=== PATIENT | male | born 1955 | race Caucasian/White ===

== ENCOUNTER 2025-08-30 07:14 | Day surgery (SDC) | payer OTHER ==
[~2025-08-30] VITALS: Ht 190.5 cm; Wt 79.4 kg
[~2025-08-30 07:14] MED LIST: ATOR20 PO; Aspir 8181 MG PO; CHLO25B PO; CYCL10 PO; DOCU100 PO; ELIQUIS5 M2 PO; EPIPEN0.3 MG/0.3 IM; FAMO40 PO; FLUT.05NI; MINIPRESS2 M1 PO; PRAZ5 PO; SENN187 PO
[2025-08-30 07:45] VITALS: BP 121/83
[2025-08-30] MEDS ORDERED: NS 500 ML IV ONE (07:59)
[2025-08-30] MEDS ORDERED: Verapamil HCL 2.5 MG/ML 2ML Injection ONE (07:59)
[2025-08-30] MEDS ORDERED: NS 100 ML IV ONE ×2 (07:59→08:15)
[2025-08-30] MEDS ORDERED: NS 250 ML IV ONE (07:59)
[2025-08-30] MEDS ORDERED: Heparin Sodium 1000 Units/ML 10ML MDV ONE ×2 (07:59→08:12)
[2025-08-30] MEDS ORDERED: NS 0 ML IV ONE (07:59)
[2025-08-30] MEDS ORDERED: Nitroglycerin 2 MG/20 ML BTL ONE (08:00)
[2025-08-30] MEDS ORDERED: NS 1,000 ML IV ONE (08:08)
[2025-08-30] MEDS ORDERED: FentaNYL Citrate 50 MCG/ML 2 ML Injection ONE (08:08)
[2025-08-30] MEDS ORDERED: Midazolam HCl 1MG / ML 2ML Vial ONE (08:08)
[2025-08-30 10:01] VITALS: BP 145/93
--- NOTE | 2025-08-30 10:05 | NUR ---
FULL REPORT PROVIDED BRANT Clark RN TO ASSUME CARE OF PT.
[2025-08-30 10:15] VITALS: BP 122/75
--- NOTE | 2025-08-30 10:48 | NUR ---
PT VERBALIZED UNDERSTANDING OF WRITTEN AND VERBAL D/C INST. R PEDAL DRSG CDI. IV REMOVED. PT TAKEN OUT OF THE [facility]RT [facility]ENTER VIA W/C.
== END 2025-08-30 10:45 | disposition home or self-care (01) ==
LOC: MHTC 07:14
DX: I73.9 Peripheral vascular disease, unspecified (principal); Z53.8 Procedure and treatment not carried out for other reasons; I10 Essential (primary) hypertension; F17.210 Nicotine dependence, cigarettes, uncomplicated; Z91.030 Bee allergy status; Z91.09 Other allergy status, other than to drugs and biological substances; Z79.01 Long term (current) use of anticoagulants; Z79.82 Long term (current) use of aspirin; Z79.899 Other long term (current) drug therapy
CPT/HCPCS: 36140; 76937; C1894; J1644; J2250; J3010; J7030; J7040; J7050